=== PATIENT | male | born 1975 | race Caucasian/White ===

== ENCOUNTER 2017-03-23 23:36 | Inpatient (IN) | payer BC ==
[~2017-03-23] VITALS: Ht 182.9 cm; Wt 131.0 kg
--- NOTE | ~2017-03-23 | CATH ---
Cardiac Diagnostic + PCI Report Demographics Patient Name GERRI Garcia Gender Male Date of 1975 Age 41 year(s) Patient Number [id number] Date of Study 03/24/2017 Visit Number [id number] Room Number 430 Corporate ID Ht 182.88 cm Wt 133.81 kg Accession Number [id number] BSA 2.51 m kg/m Referring Drea Albert Primary Physician Physician Babs WILLINGHAM Performing Drea Oneill Secondary Physician Physician Diagnostic Drea Oneill Assisting Physician Physician Interventional Drea Oneill Physician Paraeducator Physician Findings and Conclusions Diagnostic Findings and Conclusion 1. Single vessel CAD. 2. 100% Mid LAD with ISA 0 flow. 3. Non obstructive CAD of Circ and Dominant RCA. Diagnostic Recommendations 1. Immediate PCI of Mid LAD. Interventional Findings and Conclusion 1. Successful PCI of Mid LAD with a 3.5 x 24 Synergy stent. Islam of ISA 3 flow. No immediate complications. Interventional Recommendations 1. USP dual antiplatelet therapy. 2. Aggressive risk factor modification. Procedure Description The patient was brought to the diagnostic cardiac catheterization-laboratory in the fasting, non-sedated state. Informed consent was obtained in the written and verbal form after the risks and benefits were explained. The patient had no further questions and agreed to proceed. The planned puncture-incision site(s) were shaved and prepped with ChloraPrep and draped in the usual sterile manner. Conscious sedation, supplemental oxygen, and pain control medications were delivered by a registered nurse under physician guidance. Surface ECG rhythm, blood pressure measurement, and pulse oximetry were monitored throughout the procedure. Arterial access. The right radial access site was infiltrated with lidocaine. The vessel was entered with the Seldinger technique. A 6F sheath was advanced into the vessel and used for catheter placement. Selective left coronary angiography. A EBU 3.5 catheter was advanced into the left coronary vessel ostium under Fluoroscopic guidance. Contrast was injected by hand. Images were obtained in multiple projections. Selective right coronary angiography. A FR 4 catheter was advanced into the right coronary vessel ostium under fluoroscopic guidance. Contrast was injected by hand. Images were obtained in multiple projections. Left heart catheterization. A FR4 catheter was advanced across the aortic valve to the left ventricle under fluoroscopic guidance. Resting hemodynamics were obtained. Stent Placement: A EBU 3.5 guiding catheter was used to intubate the vessel. A 0.14 wire was used to cross the lesion. A 3.5x24 Synergy Drug Eluting Stent was placed. Post placement angiograms were performed. Arterial artery hemostasis was achieved with TR band. The patient was transferred to a regular nursing floor via cart accompanied by a nurse. The patient left the laboratory in stable condition. Diagnostic Cath Status: Emergency Procedure Procedure Type Diagnostic procedure:Angiography:, Coronary Angios w/LHC, Diagnostic Heart Cath SF PCI procedure:Drug Eluting Coronary Stent:, LAD Indications: Chest pain with positive enzymes, Abnormal ECG and Family history of coronary artery disease. The procedure was explained in detail to the patient. Risks, complications and alternative treatments were reviewed. Written consent was obtained. Medications Reviewed with Patient prior to Procedure. Complications: No Complication. Angiographic Findings Dominance: Right Cardiac Arteries and Lesion Findings LMCA: Normal (0% Stenosis). LAD: Abnormal. Lesion on Mid LAD: Mid subsection.100% stenosis 24 mm length reduced to 0%. Pre procedure ISA 0 flow was noted. Post Procedure ISA III flow was present. The guidewire cross was successful.Culprit lesion. Devices used - PROWATER WIRE 0.014" X 180CM. Number of passes: 1. - CATH BAL RX EMERGE 2.5X15. 1 inflation(s) to a max pressure of: 10 delilah. - CATH STENT SYNERGY 3.5 X 24. 1 inflation(s) to a max pressure of: 12 delilah. - CATH BAL RX NC EMERGE 3.5X15. 2 inflation(s) to a max pressure of: 20 delilah. Lesion on 1st Diag: Proximal subsection.70% stenosis . LCx: Abnormal. Lesion on Prox CX: 40% stenosis . Lesion on Mid CX: 40% stenosis . RCA: Abnormal. Lesion on Mid RCA: 30% stenosis . Lesion on Dist RCA: 40% stenosis . Coronary Tree Procedure Data Procedure Date Date: 03/24/2017Start: 04:15 AM Entry Locations - Percutaneous access was performed through the Right Radial artery (Primary location). A 6 Fr sheath was inserted. Hemostasis was successfully obtained using a TR band. Procedure Medications Order and Administration + + +---------+-------+ !Time !Medication !Dosage !Route ! + + +---------+-------+ !03/24/2017 !Versed !1 mg !I.V. ! !04:12 AM ! ! ! ! + + +---------+-------+ !03/24/2017 !Fentanyl !25 mcg !I.V. ! !04:13 AM ! ! ! ! + + +---------+-------+ !03/24/2017 !Sodium Chloride !10 ml !I.V. ! !04:13 AM ! ! ! ! + + +---------+-------+ !03/24/2017 !Oxygen !2 l/min !NC ! !04:19 AM ! ! ! ! + + +---------+-------+ 03/24/2017 !SF Radial Cocktail: 200mcg Nitro, 2.5 mg! !I.A. ! !04:20 AM !Verapamil, 5000u Heparin ! ! ! + + +---------+-------+ 03/24/2017 !Brilinta (Ticagrelor) (ACC_20) !180 mg !P.O. ! !04:37 AM ! ! ! ! + + +---------+-------03/24/2017 !Fentanyl !50 mcg !I.V. ! !04:40 AM ! ! ! ! + + +---------+-------03/24/2017 !Heparin (ACC_3) !2000 !I.V. ! !04:50 AM ! !units ! ! + + +---------+-------+ 03/24/2017 !Heparin (ACC_3) !3000 !I.V. ! !05:12 AM ! !units ! ! + + +---------+-------+ Devices Used - ACATH 6F FR4 CATHETER 100CMwas used for:Right coronary angiography. - AGUIDE CATHETER 6FR EBU 3.5 100CMwas used for:Left coronary angiography. Contrast Material - Isovue 279411 ml Fluoroscopy Time: Diagnostic: 10:48 minutes. Total: 10:48 minutes. Fluoroscopy Dose: Diagnostic: 2504 mGy. Total: 2504 mGy. Estimated Blood Loss: 11 ml. Medical History Allergies - Penicillin. Risk Factors The patient risk factors include:obesity, last creatinine: 1.3 mg/dl and creatinine clearance: 138.67 ml/min. Admission Data Admission Date: 03/24/2017 Admission Time: 01:07 AM Insurance Payors: Private health insurance. Clinical Evaluation Leading to Procedure Diagnosed on 03/24/2017 03:40 AM. - The patient's CAD presentation was assessed as: STEMI.The symptom onset was first noted on 03/24/2017 12:00 AM(time was estimated). Hemodynamics Condition: Rest O2 Consumption: Estimated: 312.40Heart Rate: 78 bpm Pressures (mmHg) +-----+ + !Site !Pressure ! +-----+ + !AO !122/84 (101) ! +-----+ + !LV !134/4 ,15 ! +-----+ + !AO !129/87 (107) ! +-----+ + !LV !134/6 ,18 ! +-----+ + !AO !127/84 (104) ! +-----+ + Valve Gradients and Areas + +---------+---------+---------+ +---------+ + !Valve !Peak !Mean !Area !Index !Flow !Source ! + +---------+---------+---------+ +---------+ + !Aortic !4 !5 ! ! ! ! ! + +---------+---------+---------+ +---------+ + !Aortic !4 !5 ! ! ! ! ! + +---------+---------+---------+ +---------+ + Shunts Oxygen Values O2 Capacity 208.08 O2 Consumption 312.4 Discharge Data Discharge Date: 03/25/2017 Hospital Status: Inpatient Signatures
--- NOTE | ~2017-03-23 | ECH ---
Transthoracic Echocardiography Report (TTE) Demographics Patient Name TERRY TALLEY Date of Study 03/24/2017 Patient Number [id number] Visit Number [id number] Date of 1975 Room Number 430 Accession Number [id number] Gender Male Age 41 year(s) Referring Drea Brice Emergency Telecommunications Dispatcher Bailee Bonner MD [facility] Physician Interpreting Drea Oneill Last Repairer Helper Physician Supervising Ordering Physician Drea Oneill MD/MLP Nurse Stress Rag Sorter And Cutter Conclusions Summary Technically adequate exam. The estimated left ventricular ejection fraction is 40-45%. No significant valvular abnormalities. Procedure Type of Study TTE procedure:Echo Complete SF. Procedure Date Date: 03/24/2017 Start: 08:31 AM Technical Quality: Adequate visualization Indications:Chest pain. Additional Indications:STEMI,s/p stent Appropriate Use Criteria: 9 Height: 72 inches Weight: 295 pounds BSA: 2.51 m Rhythm: NSR HR: 72 bpm BP: 130/83 mmHg Allergies - Penicillin. M-Mode/2D Measurements LV Diastolic Dimension: 4.79 cm LV Systolic Dimension: 3.47 cm LV Septum Diastolic: 0.97 cm LV PW Diastolic: 0.94 cm AO Root Dimension: 2.96 cm Cardiac Output: 4.26 l/min LA Dimension: 4.1 cm Cardiac Index: 1.7 l/min*m RV Diastolic Dimension: 4.21 cm LA volume index: 23 ml/m LVOT: 2.18 cm LVOT VTI: 15.87 cm RV Base: 2.7 cm LV Stroke volume: 59.21 ml RV Mid: 1.2 cm LV Stroke volume index: 23.59 ml/m TAPSE: 2.3 cm TDI-S': 10 cm/s Doppler Measurements AV Peak Velocity: 0.9 m/s MV Peak E-Wave: 0.61 m/s AV Peak Gradient: 3.24 mmHg MV Peak A-Wave: 0.59 m/s AV Mean Gradient: 2.12 mmHg MV E/A Ratio: 1.03 LVOT Peak Velocity: 0.69 m/s MV P1/2t: 46.1 msec AV Area (Continuity):2.82 cm MV Deceleration Time: 165.8 msec MV Area (PHT): 4.78 cm PV Peak Velocity: 0.84 m/s E' Septal Velocity: 0.11 m/s PV Peak Gradient: 2.8 mmHg E' Lateral Velocity: 0.12 m/s A' Septal Velocity: 0.1 m/s A' Lateral Velocity: 0.11 m/s RA Area: 16.96 cm Findings Left Ventricle The left ventricle is normal in size . Diastolic assessment reveals normal relaxation. Right Ventricle Normal right ventricle structure and function. Left Atrium Normal left atrial size. Right Atrium Normal right atrial size. Mitral Valve Normal mitral valve structure and function. Aortic Valve Normal aortic valve structure and function. Tricuspid Valve Normal tricuspid valve structure and function. Trivial tricuspid regurgitation by color Doppler. Insufficient jet to calculate pulmonary pressures. Pulmonic Valve Normal pulmonic valve structure and function. Pericardial Effusion No evidence of pericardial effusion. Miscellaneous Visualized portions of the aortic root and ascending aorta appear normal in size. Pleural Effusion No evidence of pleural effusion. Contractility Score LV regional wall motion:(0-Non visualized 1-Normal 2-Hypokinesis 3-Akinesis 4-Dyskinesis 5-Aneurysm) Signature
--- NOTE | 2017-03-26 01:36 | ER ---
ADMIT: 03/24/2017 RM/LOC: 430 [facility] MR#: [id number] [address] [address] TERRY TALLEY [address] [place] [address] Emergency Room Report SEX: M AGE: 41 : 1975 DATE: 03/23/2017 CHIEF COMPLAINT: Chest pain. HISTORY OF PRESENT ILLNESS: The patient is a 41-year-old male, who comes in complaining of chest pain. These episodes have happened about 6 to 7 times over the past 9 hours when they first began. When they come on, they are sharp, central left-sided chest pain. They are quite severe when they happen and they last for several minutes, and he does get diaphoretic with it and seems like he has some worsening symptoms with deep breaths. He has no radiation of the pain and has no nausea or vomiting. It is not made worse with any movement, and he has had no new activities or injuries. He did have a similar episode about 6 months ago when he had a workup including a stress test which was normal, but he states that this pain he is having is much worse than the previous episode. He was actually at the doctor's office with his daughter, who has had a visit earlier today when the pain started. He had an EKG done at that time, and it is apparently normal per the patient. REVIEW OF SYSTEMS: A 10-point review of systems is done and otherwise negative except as in HPI. PAST MEDICAL HISTORY: He has no chronic illnesses. He did have an episode of pericarditis almost 20 years ago, which they believe was postviral at that time, and it apparently resolved without any difficulties. PROCEDURES: He has had a knee scope. MEDICATIONS: None. ALLERGIES: SEE NURSE'S NOTE. SOCIAL HISTORY: Denies smoking or drug use. Does use alcohol occasionally. PHYSICAL EXAMINATION: There are no acute abnormal findings. LABORATORY AND X-RAY DATA: Chest x-ray, negative acute. LABORATORY DATA: CBC is normal. Chemistries are normal other than a glucose of 140. D-dimer is not elevated 0.19. Troponin is slightly elevated at 0.297. EKG shows sinus rhythm, rate of 75. No signs of ST-elevation or acute MD. ADMIT: 03/24/2017 RM/LOC: 430 [facility] MR#: [id number] [address] [address] [facility] [place] [address] Emergency Room Report SEX: M AGE: 41 : 1975 EMERGENCY DEPARTMENT COURSE: Based on the patient's complaints of pain earlier today, we did go ahead and do labs, chest x-ray, and EKG. I did check a D-dimer also as he had some sharp pain that at times has been worse with deep inspiration, even though he had no risk factors for DVT or PE. The only abnormality that came back was a slightly elevated troponin. He had no chest pain while in the ER, so he was not given nitroglycerin here, but did receive aspirin shortly after arrival. Due to his elevated troponin, I do believe the patient warrants further observation with serial enzymes for his cardiac markers. As he is normally a patient of Dr. Shepard, he will be coming in with orders to be written by Dr. Hurst. DIAGNOSIS: Chest pain. Finn Villatoro MD/ joyce JOB #: [id number] CC: Roosevelt Shepard MD, Attending Physician Roosevelt Shepard MD, Family Physician
[2017-03-26] MEDS ORDERED: BRILINTA90 MG PO (09:40)
[2017-03-26] MEDS ORDERED: COZAAR DPS25 MG PO (09:40)
[2017-03-26] MEDS ORDERED: CRESTOR20 MG PO (09:40)
[2017-03-26] MEDS ORDERED: CARVEDILOL3.125 MG PO (09:40)
[2017-03-26] MEDS ORDERED: VALTREX DPS1 GM PO (09:40)
[2017-03-26] MEDS ORDERED: ASA CHILDREN'S81 MG PO (09:40)
[2017-03-26] MEDS ORDERED: NITROSTAT0.4 MG SL (09:41)
--- NOTE | 2017-03-30 18:18 | HP ---
ADMIT: 03/24/2017 RM/LOC: 430 [facility] MR#: [id number] [address] [address] TERRY TALLEY [address] [place] [address] History and Physical SEX: M AGE: 41 : 1975 DATE OF SERVICE: CHIEF COMPLAINT: Chest pain. HISTORY OF PRESENT ILLNESS: The patient presented to the emergency room with a 9-hour history of intermittent chest pain. Reports that the pain is sharp on the left side of his chest and worse with deep inspiration. The pain has occurred intermittently throughout the day and at times he would consider it severe. He did have associated diaphoresis with the pain, but denied any radiation of the pain. He is a never smoker with no known history of coronary artery disease. He did have some chest pain about 6 months ago and underwent a stress test, which was considered negative. He is pain-free in the emergency room with a normal EKG, but troponin was elevated at 0.297. His only past medical history is pericarditis 20 years ago, and he has no premature cardiovascular disease in his family. PAST MEDICAL HISTORY: 1. Pericarditis 20 years ago, presumed to be viral. 2. Chest pain 6 months previously with the normal stress test. PAST SURGICAL HISTORY: Knee surgery. MEDICATIONS: None. ALLERGIES: PENICILLIN. SOCIAL HISTORY: The patient is . He is a never smoker. He uses occasional alcohol. He denies any new or illicit herbs, drugs, or supplements. FAMILY HISTORY: No known premature cardiovascular disease. REVIEW OF SYSTEMS: A 10-point review of systems negative except as noted in the HPI. PHYSICAL EXAMINATION: VITAL SIGNS: Blood pressure 161/91, pulse 77, respirations 22, oxygen saturation 97%, temperature 97.4. GENERAL: Awake, alert, and oriented. No acute distress. Appropriately anxious. HEENT: Head is normocephalic and atraumatic. Pupils are equal, round, and reactive to light. Extraocular muscles are intact. Mucous membranes are moist. NECK: Supple. Thyroid is not palpable. JVD is not appreciable. HEART: Regular rate and rhythm without murmur. LUNGS: Clear to auscultation bilaterally. ABDOMEN: Soft, nontender to palpation. Bowel sounds are present. EXTREMITIES: Without cyanosis, clubbing, or edema. NEURO: The patient is grossly intact. ADMIT: 03/24/2017 RM/LOC: 430 [facility] MR#: [id number] [address] [address] [facility] [address] [place] [address] History and Physical SEX: M AGE: 41 : 1975 LABORATORY DATA AND IMAGING: WBC 8.6, hemoglobin 15.3, platelets 282, creatinine 1.3. D-dimer normal. Troponin 0.297. Initial EKG, normal sinus rhythm without ST or T-wave changes. ASSESSMENT: 1. Chest pain. 2. Elevated troponin. PLAN: To admit the patient to the hospital for acute coronary syndrome rule out. The patient reports that he was actually seen in the office today and had EKG while he was experiencing the chest pain, which was read as normal. We will trend CK-MB troponin, and EKGs every 6 hours or sooner if needed per the patient's symptoms. The patient has not had any symptoms since presentation. He was given aspirin in the ER. Christiane Munoz MD Resident / Kemal Hurst MD / joyce JOB #: [id number] CC: Roosevelt Shepard, Attending Physician Roosevelt Shepard, Family Physician
--- NOTE | 2017-04-11 15:44 | DS ---
ADMIT: 03/24/2017 RM/LOC: 430 [facility] MR#: [id number] [address] [address] ULISESJUSTYN TERRY Garcia [address] [place] [address] General Discharge Summary SEX: M AGE: 41 : 1975 ADMISSION DATE: 03/24/2017 DISCHARGE DATE: 03/25/2017 ADMITTING DIAGNOSIS: Chest pain with elevated troponin. DISCHARGE DIAGNOSIS: Anterior ST-elevation myocardial infarction status post drug-eluting stent to the LAD . SECONDARY DIAGNOSIS: 1. Gastroesophageal reflux disease. 2. Obesity. 3. Nonobstructive coronary artery disease circumferential. CONSULTATIONS: Cardiology. PROCEDURES: Heart catheterization with percutaneous coronary intervention on 03/25/2017. HISTORY OF PRESENT ILLNESS: The patient is a 41-year-old male with no prior cardiac history or significant cardiac risk factors, who presented to the emergency room with chest discomfort. 24 hours before presentation, the patient had some mild substernal heaviness at a softball game that resolved spontaneously with no other associated symptoms. He then had recurrence of the symptoms while he was at his daughter's doctor's appointment and actually had an EKG that was read as normal. The evening, he presented to the emergency room, he said he was not exerting himself and had transient severe chest discomfort described as a sharp heaviness with severe diaphoresis and some nausea. In the emergency room, he was noted to have a troponin that was mildly elevated at 0.297, and a normal EKG. He was then admitted for acute coronary syndrome rule out. HOSPITAL COURSE: Few hours after admission at 3:00 a.m., the patient developed severe recurrent chest pressure and EKG at that time had ST elevation across the anterior precordium with no reciprocal changes. Cardiology was consulted, the patient was given 81 mg of aspirin, oral beta- bernabe, and a bolus of heparin before being taken emergently to the manager labor delivery. He was found to have 100% occlusion of his mid LAD and underwent successful PCI. He is also noted to have nonobstructive coronary disease of the circ. Echocardiogram was significant for left ventricular ejection fraction of 40% to 45%. He was started on rosuvastatin, losartan, Coreg, and Brilinta following catheterization. On 03/25, the patient was found to be stable for discharge. He had no cardiac arrhythmias throughout the hospitalization or recurrence of his symptoms following catheterization. DISCHARGE MEDICATIONS: ADMIT: 03/24/2017 RM/LOC: 430 [facility] MR#: [id number] [address] [address] TERRY TALLEY [address] [place] [address] General Discharge Summary SEX: M AGE: 41 : 1975 1. Aspirin 81 mg p.o. daily. 2. Brilinta 90 mg p.o. b.i.d. 3. Coreg 3.125 mg p.o. b.i.d. 4. Cozaar 25 mg p.o. daily. 5. Crestor 20 mg p.o. daily. 6. Nitrostat 0.4 mg p.o. every 5 minutes as needed up to 3 times sublingual. 7. Valacyclovir 1 g p.o. t.i.d. p.r.n. CONDITION AT DISCHARGE: Stable. DISPOSITION: Discharged to home. Follow up in 1 week with [facility] as well as initiating cardiac rehab. Christiane Munoz MD Resident / Kemal Hurst MD / joyce JOB #: [id number] CC: Roosevelt Shepard MD, Attending Physician Roosevelt Shepard MD, Family Physician
--- NOTE | 2017-04-21 10:32 | CO ---
ADMIT: 03/24/2017 RM/LOC: 430 [facility] MR#: [id number] [address] [id number] TERRY TALLEY [address] [place] [address] Consultation SEX: M AGE: 41 : 1975 DATE OF CONSULTATION: 03/24/2017 ATTENDING PHYSICIAN: Roosevelt Shepard CONSULTING PHYSICIAN: Micah Shepard MD REASON FOR CONSULT: EKG changes and chest pain. HISTORY OF PRESENT ILLNESS: Terry is a 41-year-old with no prior cardiac history. He really does not have any significant cardiac risk factors. He says he was doing well until last night. 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 During that episode, he had some mild chest discomfort described as a heaviness, which was substernal. No real associated symptoms. It improved and he slept okay last night. Earlier today, he had another episode actually while he was at the family practice office with his daughter, who was up there for an x-ray. They did an EKG, which was reportedly unremarkable. He does have a history of GERD, so there were concerns that he was having increasing reflux symptoms. He went home. This evening, he said he was not exerting himself but he would have transient or severe chest discomfort described as sharp heaviness associated with severe diaphoresis. He had some nausea. Said he was not really short of breath. There was not much radiation of the pain. He had an episode at 9 o'clock and then another one around 11 or 11:30 when his brought him to the emergency room. His initial evaluation was unremarkable. He was admitted for chest pain rule out. I was called just after 3 o'clock this morning after he had an episode of severe chest pain. I did an EKG during his episode and there was ST elevation across the anterior precordium with no reciprocal changes. He was given a couple of nitroglycerin, his chest pain got better and his EKG improved although it has not completely normalized and he does have some mildly peaked T-waves and some mild ST elevation but once again, no reciprocal changes. He is currently hemodynamically stable and currently pain free. His troponin was mildly elevated at 0.297. PAST MEDICAL HISTORY: He is allergic to penicillin. He says his only illness is gastroesophageal reflux disease. He takes Prilosec. PAST SURGICAL HISTORY: Includes I think an arthroscopy for torn meniscus of his right knee. FAMILY HISTORY: His grandfather had an CO at early age, but he cannot remember how old he was. No significant family history of diabetes, cancer, stroke. His mother and father are healthy and he has siblings, who are healthy. 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 He does not smoke. He denies illicit drug use. No history of illicit drug use. He uses alcohol socially, mostly on the weekends. He drinks caffeine in the form of soda and coffee. No special diet. ADMIT: 03/24/2017 RM/LOC: 430 [facility] MR#: [id number] [address] [place] [id number] [facility] [address] [place] [id number] Consultation SEX: M AGE: 41 : 1975 REVIEW OF SYSTEMS: A focused review of systems was performed and noncontributory other than that mentioned in the HPI. PHYSICAL EXAMINATION: VITAL SIGNS: His blood pressure is 103/54, his pulse is 90 and regular, respirations 14, he is afebrile. GENERAL: He is alert and oriented, appears mildly anxious, but cooperative. He is accompanied by his . SKIN: [place], warm and dry. EYES: Sclerae clear. No xanthelasmas. ENT: Oral mucosa is pink and moist. No jugular venous distention or carotid bruits. CHEST: Respirations are even and unlabored. Lungs are clear to auscultation. HEART: Regular. No significant rubs noted. No gallops and no significant murmurs. Heart is somewhat distant. ABDOMEN: Soft and nontender. MUSCULOSKELETAL: Gait is normal. EXTREMITIES: Peripheral pulses palpable. No clubbing, cyanosis or edema. PSYCHIATRIC: He is little bit anxious. Alert and oriented. Mood and affect are appropriate. LABORATORY DATA: Sodium 140, potassium 3.7, BUN 13, his glucose was 140 with a creatinine of 1.3. Troponin 0.297. White count 8.6, hemoglobin 15.3, and platelet count 282,000. Chest x-ray overall poor quality film, but there is no evidence of significant pulmonary vascular congestion. Mediastinum is normal size. EKG, his second one during his chest discomfort shows clear injury pattern across the anterior precordium. No reciprocal changes, sinus rhythm. IMPRESSION: 1. Acute coronary syndrome with transient ST elevation changes. 2. Gastroesophageal reflux disease. 3. Obesity. RECOMMENDATIONS: He is having stuttering chest pain associated with ADMIT: 03/24/2017 RM/LOC: 430 [facility] MR#: [id number] [address] [place] [id number] TERRY TALLEY [address] [place] [address] Consultation SEX: M AGE: 41 : [address] changes showing an injury pattern across the anterior precordium. I am concerned about a high-grade LAD. He is hemodynamically stable. We will start him on fluids. I gave a bolus of heparin and a low- dose of beta-bernabe orally. He has already received aspirin. We will plan to proceed urgently to the cath lab radiology technician. He is pain free but with his stuttering pain and significant EKG changes, we will proceed to the cath lab radiology technician on an urgent basis with an eye towards percutaneous coronary intervention. The heart catheterization was discussed with the patient and his . We discussed the procedure, potential risks and benefits. Potential risks including, but not limited to, vascular trauma, bleeding, worsening of his CO, stroke, renal failure, and even a small possibility of . He states understanding and agrees to proceed. Micah Shepard MD/ joyce JOB #: [id number] CC: Roosevelt Shepard, Attending Physician Roosevelt Shepard, Family Physician
== END 2017-03-25 11:52 | disposition home or self-care (01) | DRG 247 ==
LOC: ER 23:36 → 4PCU 03-24 01:07
PROVIDERS: ADMIT Family Medicine
PROC: 027034Z Dilation of Coronary Artery, One Artery with Drug-eluting Intraluminal Device, Percutaneous Approach (ICD-10-PCS; principal; 2017-03-24)
PROC: B2111ZZ Fluoroscopy of Multiple Coronary Arteries using Low Osmolar Contrast (ICD-10-PCS; principal; 2017-03-24)
PROC: 4A023N7 Measurement of Cardiac Sampling and Pressure, Left Heart, Percutaneous Approach (ICD-10-PCS; principal; 2017-03-24)
DX: I21.09 ST elevation (STEMI) myocardial infarction involving other coronary artery of anterior wall (principal); Z68.41 Body mass index [BMI] 40.0-44.9, adult; I25.10 Atherosclerotic heart disease of native coronary artery without angina pectoris; E66.9 Obesity, unspecified; R79.89 Other specified abnormal findings of blood chemistry; K21.9 Gastro-esophageal reflux disease without esophagitis; Z82.49 Family history of ischemic heart disease and other diseases of the circulatory system